=== PATIENT | male | born 1965 | race Caucasian/White ===

== ENCOUNTER 2017-04-13 10:20 | Emergency (ER) | payer OTHER ==
[2017-04-13] MEDS ORDERED: KETOROLAC TROMETHAMINE 60 MG/2 ML VIAL IM ONE (10:38)
--- NOTE | 2017-04-13 10:38 | PDOC ---
History of Present Illness - General Stated Complaint: NUMBNESS ON ARM Time Seen by Provider: 04/13/17 10:29 History Source: Patient - History of Present Illness Occurred: reports: this morning Pain Location: reports: back Past History - Past Medical History Allergies/Adverse Reactions: Allergies Allergy/AdvReac Type Severity Reaction Status Date / Time No Known Allergies Allergy Verified 02/03/16 09:35 Home Medications: Ambulatory Orders Cyclobenzaprine HCl [Flexeril -] 10 mg PO TID #9 tablet 04/13/17 Ibuprofen [Motrin -] 600 mg PO QID #28 tablet 04/13/17 - Suicide/Smoking/Psychosocial Hx Smoking History: Current some day smoker Have you smoked in the past 12 months: Yes Number of Cigarettes Smoked Daily: 2 Hx Alcohol Use: No Drug/Substance Use Hx: No Substance Use Type: None Review of Systems - Review of Systems Musculoskeletal: Yes: Back Pain. No: Neck Pain Neurological: Yes: Numbness, Tingling *Physical Exam - Physical Exam General Appearance: Yes: Appropriately Dressed. No: Apparent Distress HEENT: positive: Normal Voice Neck: positive: Supple. negative: Tender, Decreased range of motion Respiratory/Chest: negative: Respiratory Distress Musculoskeletal: positive: Vertebral Tenderness Extremity: positive: Normal Inspection Integumentary: positive: Dry, Warm Neurologic: positive: Fully Oriented, Alert, Normal Mood/Affect, Motor Strength 5/5, Other (no sensory deficit to RUE, FROMI, strenght 5/5 to UE b/l) Medical Decision Making - Medical Decision Making 04/13/17 10:37 51-year-old male, no significant history here with back pain. Patient states he works for the [employer] and while using the fire hose this morning at work , developed pain to left mid back that radiates to shoulder and has some numbness and tingling of right arm and fingertips. States pain has since improved, but is concerned about the numbness that persists. No UE weakness. Denies any neck pain. See exam Muscle strain/spasm w/ radiculopathy Appears well in ED and in NAD w/ no sig findings on exam -dc w/ pain control *DC/Admit/Observation/Transfer Diagnosis at time of Disposition: Back strain Qualifiers: Encounter type: initial encounter Qualified Code(s): S39.012A - Strain of muscle, fascia and tendon of lower back, initial encounter - Prescriptions Prescriptions: Cyclobenzaprine HCl [Flexeril -] 10 mg PO TID #9 tablet Ibuprofen [Motrin -] 600 mg PO QID #28 tablet - Referrals Referrals: Seth Bell MD [Primary Care Provider] - - Patient Instructions Printed Discharge Instructions: DI for Back Strain or Sprain Additional Instructions: Your back pain is most likely muscular. Numbness and tingling should improve with time. Take medications as prescribed for pain. If symptoms persist after 2 weeks, please follow-up with your PMD - Post Discharge Activity Forms/Work/School Notes: Back to Work
[2017-04-13 10:43] VITALS: BMI 29.0
[2017-04-13] MEDS ORDERED: KETOROLAC TROMETHAMINE 60 MG/2 ML VIAL ONE (10:45)
[2017-04-13] MEDS ORDERED: CYCLOBENZAPRINE HCL 10 MG TABLET (FP) ONE (10:45)
[2017-04-13] MEDS ORDERED: CYCLOBENZAPRINE HCL 10 MG TABLET (FP) PO ONE (10:53)
[2017-04-13 11:24] VITALS: BP 150/98; PULSE 89; TEMP 98.4
[2017-04-14] MEDS ORDERED: CYCLOBENZAPRINE HCL 5 MG TABLET PO ONE (10:38)
== END 2017-04-13 11:17 | disposition home or self-care (01) ==
LOC: JER 10:20
DX: S39.012A Strain of muscle, fascia and tendon of lower back, initial encounter (principal); M54.10 Radiculopathy, site unspecified; X50.0XXA Overexertion from strenuous movement or load, initial encounter; Y93.89 Activity, other specified; Y92.69 Other specified industrial and construction area as the place of occurrence of the external cause; Y99.0 Civilian activity done for income or pay
CPT/HCPCS: 99285-25

== ENCOUNTER 2022-02-04 11:20 | Emergency (ER) | payer OTHER ==
[2022-02-04 11:29] VITALS: BP 147/100; PULSE 64; RESP 18; TEMP 98.4; BMI 26.9
== END 2022-02-04 13:13 | disposition home or self-care (01) ==
LOC: FER 11:20
DX: H43.392 Other vitreous opacities, left eye (principal)
CPT/HCPCS: 93005; 99283-25